=== PATIENT | female | born 1995 ===

== ENCOUNTER 2018-09-15 20:49 | Emergency (ER) | payer SELFPAY ==
[2018-09-15 20:55] VITALS: TEMP 99.1
[2018-09-15] MEDS ORDERED: Albuterol-Ipratrop 3 mg / 0.5 (3 ml) UD IH STA (21:09)
--- NOTE | 2018-09-15 21:16 | ED PDOC ---
Arrival/HPI - History of Present Illness Narrative History of Present Illness (Text): 09/15/18 21:13 23 year old female with a past medical history of asthma who comes in today complaining of shortness of breath for the past 2 days. The patient reports feeling winded at rest and with activity. Patient also admits to chills, non- productive cough, and congestion. Patient reports taking Nebulizer, Robutussin, and [place] sel[place] without any improvement in symptoms. Patient denies any chest pain, dizziness, abdominal pain, syncopal episodes, or any other complaints. Past medical history: asthma Medications: Ventolin Allergies: Squash Surgical history: Tonsillectomy Hospitalization history: denies Time/Duration: < week Symptom Onset: Gradual Symptom Course: Unchanged Quality: Other Severity Level: 4 Activities at Onset: Rest Context: Sitting, Walking <López Turpin - Last Filed: 09/15/18 22:53> <Jarad Mcneil - Last Filed: 09/16/18 03:50> - General Chief Complaint: Cough, Cold, Congestion Past Medical History - Provider Review Nursing Documentation Reviewed: Yes - Cardiac Hx Cardiac Disorders: No - Pulmonary Hx Respiratory Disorders: Yes Hx Asthma: Yes - Neurological Hx Neurological Disorder: No - HEENT Hx HEENT Disorder: Yes - Renal Hx Renal Disorder: No - Endocrine/Metabolic Hx Endocrine Disorders: No - Hematological/Oncological Hx Blood Disorders: No - Integumentary Hx Dermatological Disorder: No - Musculoskeletal/Rheumatological Hx Musculoskeletal Disorders: No - Gastrointestinal Hx Gastrointestinal Disorders: No - Genitourinary/Gynecological Hx Genitourinary Disorders: No - Psychiatric Hx Psychophysiologic Disorder: No Hx Substance Use: No - Surgical History Hx Tonsillectomy: Yes <López Turpin - Last Filed: 09/15/18 22:53> Family/Social History - Physician Review Nursing Documentation Reviewed: Yes Family/Social History: No Known Family HX Smoking Status: Current Some Days Smoker Hx Alcohol Use: Yes Frequency of alcohol use: Socially Hx Substance Use: No <López Turpin - Last Filed: 09/15/18 22:53> Allergies/Home Meds <López Turpin - Last Filed: 09/15/18 22:53> <Jarad Mcneil - Last Filed: 09/16/18 03:50> Allergies/Adverse Reactions: Allergies squash Allergy (Verified 09/15/18 20:51) SWELLING Review of Systems - Review of Systems Constitutional: Normal. absent: Fatigue, Weight Change, Fevers Eyes: Normal. absent: Vision Changes, Photophobia ENT: Normal. absent: Hearing Changes, Tinnitus, Epistaxis Respiratory: SOB, Cough, Wheezing Cardiovascular: Normal. absent: Chest Pain, Syncope Gastrointestinal: Normal. absent: Abdominal Pain, Vomiting, Appetite Changes, Food Intolerance Genitourinary Female: Normal. absent: Dysuria, Frequency Musculoskeletal: Normal. absent: Arthralgias, Back Pain Skin: Normal. absent: Rash, Pruritis Neurological: Normal. absent: Headache, Dizziness, Focal Weakness Endocrine: Normal. absent: Diaphoresis, Polyuria, Polydipsia Psychiatric: Normal. absent: Anxiety, Depression <López Turpin - Last Filed: 09/15/18 22:53> Physical Exam Vital Signs Reviewed: Yes Vital Signs Temp Pulse Resp BP Pulse Ox 09/15/18 20:51 99.1 F 111 H 17 130/84 94 L Temperature: Afebrile Blood Pressure: Normal Pulse: Tachycardic Respiratory Rate: Normal Appearance: Positive for: Well-Appearing, Non-Toxic, Comfortable Pain Distress: None Mental Status: Positive for: Alert and Oriented X 3. No: Confused, Agitated - Systems Exam Head: Present: Atraumatic, Normocephalic Pupils: Present: PERRL. No: Sluggish Extroacular Muscles: Present: EOMI. No: Gaze Palsy Conjunctiva: Present: Normal. No: Injected Mouth: Present: Moist Mucous Membranes. No: Dry, Drooling Neck: Present: Normal Range of Motion. No: Meningeal Signs, JVD, Lymphadenopathy Respiratory/Chest: Present: Wheezes, Rhonchi Cardiovascular: Present: Normal S1, S2, Tachycardic Abdomen: No: Tenderness, Distention, Normal Bowel Sounds, Guarding, Ostomy Tubes Upper Extremity: Present: Normal Inspection. No: Cyanosis, Edema Lower Extremity: Present: Normal Inspection. No: Edema, CALF TENDERNESS, Declan's Sign, Temperature Abnormalties Neurological: Present: Speech Normal. No: Normal Cerebellar Funct, Norm Deep Tendon Reflexes Skin: Present: Dry, Normal Color. No: Cold, Pale Psychiatric: Present: Alert, Oriented x 3, Normal Insight <López Turpin - Last Filed: 09/15/18 22:53> Vital Signs Temp Pulse Resp BP Pulse Ox 09/15/18 20:51 99.1 F 111 H 17 130/84 94 L <Jarad Mcneil - Last Filed: 09/16/18 03:50> Medical Decision Making ED Course and Treatment: 09/15/18 21:19 23 year old female with a past medical history of asthma who comes in today complaining of shortness of breath for the past 2 days Plan: CBC CMP CXR Rapid flu Duonebs IV Methylprednisone 09/15/18 22:43 Flu negative CXR negative for active disease Patient reports improvement in breathing. Re-examined and better. Stable for discharge. - RAD Interpretation Radiology Orders: 09/15/18 21:12 CHEST PORTABLE [RAD] Stat - Medication Orders Current Medication Orders: Methylprednisolone (Solu-Medrol) 125 mg IVP STAT STA Stop: 09/15/18 21:12 Discontinued Medications Albuterol/Ipratropium (Duoneb 3 Mg/0.5 Mg (3 Ml) Ud) 3 ml IH STAT STA Stop: 09/15/18 21:10 <López Turpin - Last Filed: 09/15/18 22:53> ED Course and Treatment: Impression: Pt seen and evaluated with medical officer. Aware and agree with plan. Pt, whose past medical history includes asthma, presented for shortness of breath, chills, non-productive cough, and congestion. Plan: -- Labs -- Chest X-ray -- Rapid influenza -- Duoneb -- Solu-medrol -- Reassess and disposition Progress Notes: - Lab Interpretations Lab Results: 09/15/18 21:30 Lab Results 09/15/18 21:30: WBC 10.5, RBC 4.81, Hgb 13.0, Hct 39.0, MCV 81.1, MCH 27.0, MCHC 33.3, RDW 15.3 H, Plt Count 213, MPV 11.6 H, Gran % 74.7 H, Lymph % (Auto) 16.4 L, [place] % (Auto) 4.5, Eos % (Auto) 4.3, Baso % (Auto) 0.1, Gran # 7.81 H, Lymph # (Auto) 1.7, [place] # (Auto) 0.5, Eos # (Auto) 0.5, Baso # (Auto) 0.01 - RAD Interpretation Radiology Orders: 09/15/18 21:12 CHEST PORTABLE [RAD] Stat - Medication Orders Current Medication Orders: Discontinued Medications Albuterol/Ipratropium (Duoneb 3 Mg/0.5 Mg (3 Ml) Ud) 3 ml IH STAT STA Stop: 09/15/18 21:10 Last Admin: 09/15/18 21:15 Dose: 3 ml Methylprednisolone (Solu-Medrol) 125 mg IVP STAT STA Stop: 09/15/18 21:12 Last Admin: 09/15/18 21:15 Dose: 125 mg IVP Administration Document 09/15/18 21:15 AD (Rec: 09/15/18 21:32 AD [id number]) Charges for Administration # of IVP Administrations 1 <Jarad Mcneil - Last Filed: 09/16/18 03:50> - PA / ACETYLENE CUTTER / Resident Statement MD/DO has reviewed & agrees with the documentation as recorded. MD/DO has examined the patient and agrees with the treatment plan. - Scribe Statement The provider has reviewed the documentation as recorded by the Sandor Birch Provider Scribe Attestation: All medical record entries made by the Ameliaibswathi were at my direction and personally dictated by me. I have reviewed the chart and agree that the record accurately reflects my personal performance of the history, physical exam, medical decision making, and the department course for this patient. I have also personally directed, reviewed, and agree with the discharge instructions and disposition. <Jarad Mcneil - Last Filed: 09/16/18 03:50> Disposition/Present on Arrival - Present on Arrival Any Indicators Present on Arrival: No History of DVT/PE: No History of Uncontrolled Diabetes: No Urinary Catheter: No History of Decub. Ulcer: No History Surgical Site Infection Following: None - Disposition Have Diagnosis and Disposition been Completed?: Yes Disposition Time: 22:42 Patient Plan: Discharge <López Turpin - Last Filed: 09/15/18 22:53> <Jarad Mcneil - Last Filed: 09/16/18 03:50> - Disposition Diagnosis: Upper respiratory infection, Asthma exacerbation, mild Disposition: HOME/ ROUTINE Condition: IMPROVED Additional Instructions: 1. F/u with PMD within 2 days of discharge. 2. Return to hospital for any new or worsening symptoms. Prescriptions: RX: predniSONE [predniSONE Tab] 20 mg PO TID #15 tab Azithromycin [Zithromax] 250 mg PO DAILY #4 tab Forms: [facility] (Kazakh), WORK NOTE
[2018-09-15 21:37] LABS: BASO # 0.01 K/mm3 (0.0-2.0); BASO % 0.1 % (0.0-3.0); EOS # 0.5 (0.0-0.7); EOS % 4.3 % (1.5-5.0); GRAN # 7.81 (1.4-6.5); GRAN % 74.7 % (50.0-68.0); LYMPH # 1.7 (1.2-3.4); LYMPH % 16.4 % (22.0-35.0); MEAN CELL VOLUME 81.1 fl (80.0-105.0); MEAN CORPUSCULAR HGB CONC 33.3 g/dl (31.0-37.0); MEAN PLATELET VOLUME 11.6 fl (7.0-11.0); MONO # 0.5 (0.1-0.6); MONO % 4.5 % (1.0-6.0); RBC 4.81 10^6/uL (3.5-6.1); RED CELL DISTRIBUTION WIDTH 15.3 % (11.5-14.5); WHITE BLOOD COUNT 10.5 10^3/uL (4.5-11.0)
[2018-09-15 21:46] LABS: ALB/GLOB RATIO 1.2 (1.1-1.8); ALBUMIN 4.4 g/dL (3.0-4.8); ALT/SGPT 33 U/L (7-56); AST/SGOT 31 U/L (14-36); BLOOD UREA NITROGEN 12 mg/dL (7-21); CALCIUM 9.2 mg/dL (8.4-10.5); GFR NON-AFRICAN AMERICAN > 60
[2018-09-15 22:57] VITALS: BP 127/72; PULSE 97; RESP 18; O2SAT 95
--- NOTE | 2018-09-16 11:09 | RAD ---
Date of service: 09/15/2018 HISTORY: sob COMPARISON: No prior. FINDINGS: LUNGS: The lungs are well inflated and clear. PLEURA: No pleural effusions or pneumothorax. CARDIOVASCULAR: The heart is normal in size. No aortic atherosclerotic calcification present. OSSEOUS STRUCTURES: Within normal limits for the patient's age. VISUALIZED UPPER ABDOMEN: Normal. OTHER FINDINGS: None. IMPRESSION: No active pulmonary disease.
== END 2018-09-15 22:55 | disposition home or self-care (01) ==
LOC: ED 20:49
DX: J45.901 Unspecified asthma with (acute) exacerbation (principal); J06.9 Acute upper respiratory infection, unspecified; F17.210 Nicotine dependence, cigarettes, uncomplicated
CPT/HCPCS: 71045; 80053; 85025; 87804; 96374; 99283; J2930

== ENCOUNTER 2018-12-07 17:57 | Emergency (ER) | payer SELFPAY ==
[2018-12-07 18:55] VITALS: RESP 18
[2018-12-07 19:15] LABS: URINE BILIRUBIN NEGATIVE (NEGATIVE); URINE BLOOD NEGATIVE (NEGATIVE); URINE GLUCOSE (UA) NEGATIVE (NEGATIVE); URINE LEUKOCYTE ESTERASE NEGATIVE Leu/uL (NEGATIVE); URINE PROTEIN NEGATIVE mg/dL (<30 mg/dL); URINE UROBILINOGEN 0.2 E.U./dL (<1 E.U./dL)
[2018-12-07 19:20] LABS: URINE COLOR YELLOW (YELLOW)
[2018-12-07 19:21] LABS: URINE APPEARANCE CLEAR (CLEAR)
--- NOTE | 2018-12-07 19:27 | ED PDOC ---
Arrival/HPI - General Chief Complaint: Chest Pain Time Seen by Provider: 12/07/18 18:20 Historian: Patient - History of Present Illness Narrative History of Present Illness (Text): 12/07/18 18:55 A 23 year old female presents to the emergency department complaining of left upper chest pain radiating to left mid back since earlier today. Patient reports pain started at work earlier today due to heavy lifting. Patient states symptoms slightly resolved upon resting but state she is still in mild discomfort at this time. Patient states she has a past family history of heart disease, diabetes, and cancer. Patient denies any fever, URI, palpitations, shortness of breath, headache, dizziness, diaphoresis, trauma, injury, or any other complaints. No PMD Time/Duration: Other Symptom Onset: Gradual Symptom Course: Unchanged Activities at Onset: Light Context: Home Past Medical History - Provider Review Nursing Documentation Reviewed: Yes - Reproductive Currently : No - Cardiac Hx Cardiac Disorders: No - Pulmonary Hx Respiratory Disorders: Yes Hx Asthma: Yes - Neurological Hx Neurological Disorder: No - HEENT Hx HEENT Disorder: Yes - Renal Hx Renal Disorder: No - Endocrine/Metabolic Hx Endocrine Disorders: No - Hematological/Oncological Hx Blood Disorders: No - Integumentary Hx Dermatological Disorder: No - Musculoskeletal/Rheumatological Hx Musculoskeletal Disorders: No - Gastrointestinal Hx Gastrointestinal Disorders: No - Genitourinary/Gynecological Hx Genitourinary Disorders: No - Psychiatric Hx Psychophysiologic Disorder: No Hx Substance Use: No - Surgical History Hx Tonsillectomy: Yes Family/Social History - Physician Review Nursing Documentation Reviewed: Yes Family/Social History: No Known Family HX Smoking Status: Current Some Days Smoker Hx Alcohol Use: Yes Frequency of alcohol use: Socially Hx Substance Use: No Allergies/Home Meds Allergies/Adverse Reactions: Allergies squash Allergy (Verified 12/07/18 18:08) SWELLING Home Medications: Home Meds Medication Instructions Recorded Confirmed Albuterol HFA [Ventolin HFA 90 2 puff NEB Q6 PRN 12/07/18 12/07/18 mcg/actuation (8 g)] Review of Systems - Physician Review All systems were reviewed & negative as marked: Yes - Review of Systems Constitutional: absent: Fevers Respiratory: absent: SOB, Other (URI) Cardiovascular: Chest Pain. absent: Palpitations Musculoskeletal: Back Pain Neurological: absent: Headache, Dizziness Endocrine: absent: Diaphoresis Physical Exam Vital Signs Reviewed: Yes Vital Signs Temp Pulse Resp BP Pulse Ox 12/07/18 17:58 97.9 F 75 18 125/71 98 Temperature: Afebrile Blood Pressure: Normal Pulse: Regular Respiratory Rate: Normal Appearance: Positive for: Well-Appearing Mental Status: Positive for: Alert and Oriented X 3 - Systems Exam Head: Present: Atraumatic, Normocephalic Pupils: Present: PERRL Extroacular Muscles: Present: EOMI Conjunctiva: Present: Normal Neck: Present: Normal Range of Motion Respiratory/Chest: Present: Clear to Auscultation, Good Air Exchange. No: Respiratory Distress, Accessory Muscle Use Cardiovascular: Present: Regular Rate and Rhythm, Normal S1, S2. No: Murmurs Abdomen: No: Tenderness, Distention, Peritoneal Signs Back: Present: Normal Inspection Upper Extremity: Present: Normal Inspection. No: Cyanosis, Edema Lower Extremity: Present: Normal Inspection. No: Edema Neurological: Present: GCS=15, CN II-XII Intact, Speech Normal Skin: Present: Warm, Dry, Normal Color. No: Rashes Psychiatric: Present: Alert, Oriented x 3, Normal Insight, Normal Concentration Medical Decision Making ED Course and Treatment: 12/07/18 18:57 Impression: 23 year old presenting to the emergency room complaining of left side chest pain. Plan: -- EKG -- Labs -- CBC -- COAGs -- Chest X-ray -- Reassess and disposition Prior Visits: Notes and results from previous visits were reviewed. Progress Notes: Wells' Criteria for Pulmonary Embolism from [email or web address] on 12/07/2018 RESULT SUMMARY: 0.0 points Low risk group: 1.3% chance of PE in an ED population. Another study assigned scores = 4 as PE Unlikely and had a 3% incidence of PE. INPUTS: Clinical signs and symptoms of DVT > 0 = No PE is #1 diagnosis OR equally likely > 0 = No Heart rate > 100 > 0 = No Immobilization at least 3 days OR surgery in the previous 4 weeks > 0 = No Previous, objectively diagnosed PE or DVT > 0 = No Hemoptysis > 0 = No Malignancy w/ treatment within 6 months or palliative > 0 = No 12/07/18 19:22 EKG: Ordered, reviewed, and independently interpreted the EKG. Rate : 83 BPM Rhythm : NSR Interpretation : No ST-segment elevations or depressions, no T-wave inversions, normal intervals. CXR : NAD, as read by JAM Labs reviewed : trop (-), rest of the labs wnl. On reevaluation, patient reports improvement of symptoms, denies any back pain or SOB. On exam, patient remains awake alert and oriented 3 in no acute distr ess. Results d/w the patient. Considering patient's onset of symptoms, and that she is a smoker with significant family history, will repeat a 2nd troponin after 3 hours. 2nd trop ordered. 12/07/18 23:58 2nd trop (-). Repeat VS BP 110/58 P 82 O2sat 95%RA R 18. On second reevaluation, patient denies any CP, SOB or back pain. On exam, patient laying in bed comfortably in no acute distress. Results d/w the patient. Based on history, exam and diagnostic results plan will be for outpatient follow up. Advised to follow up with the clinic in 1-2 days without fail. Return to the emergency room at any time for any new or worsening symptoms. Patient states she fully agrees with and understands discharge instructions. States that she agrees with the plan and disposition. Verbalized and repeated discharge instructions and plan. I have given the patient opportunity to ask any additional questions. 12/08/18 00:03 - Lab Interpretations Lab Results: Urine Color Yellow (YELLOW) 12/07/18 19:00 Urine Appearance Clear (CLEAR) 12/07/18 19:00 Urine pH 6.0 (4.7-8.0) 12/07/18 19:00 Ur Specific [place] >= 1.030 (1.005-1.035) 12/07/18 19:00 Urine Protein Negative mg/dL (<30 mg/dL) 12/07/18 19:00 Urine Glucose (UA) Negative mg/dL (NEGATIVE) 12/07/18 19:00 Urine Ketones Negative mg/dL (NEGATIVE) 12/07/18 19:00 Urine Blood Negative (NEGATIVE) 12/07/18 19:00 Urine Nitrate Negative (NEGATIVE) 12/07/18 19:00 Urine Bilirubin Negative (NEGATIVE) 12/07/18 19:00 Urine Urobilinogen 0.2 E.U./dL (<1 E.U./dL) 12/07/18 19:00 Ur Leukocyte Esterase Negative [place]/uL (NEGATIVE) 12/07/18 19:00 - RAD Interpretation Radiology Orders: 12/07/18 19:01 CHEST PORTABLE [RAD] Stat - PA / CLIENT REPRESENTATIVE / Resident Statement MD/DO has reviewed & agrees with the documentation as recorded. - Scribe Statement The provider has reviewed the documentation as recorded by the Scribswathi Perez All medical record entries made by the Scribe were at my direction and personally dictated by me. I have reviewed the chart and agree that the record accurately reflects my personal performance of the history, physical exam, medical decision making, and the department course for this patient. I have also personally directed, reviewed, and agree with the discharge instructions and disposition. Disposition/Present on Arrival - Present on Arrival Any Indicators Present on Arrival: No History of DVT/PE: No History of Uncontrolled Diabetes: No Urinary Catheter: No History of Decub. Ulcer: No History Surgical Site Infection Following: None - Disposition Have Diagnosis and Disposition been Completed?: Yes Diagnosis: Chest pain Disposition: HOME/ ROUTINE Disposition Time: 00:00 Patient Plan: Discharge Condition: STABLE Discharge Instructions (ExitCare): Chest Pain (ED) Additional Instructions: Thank you for letting us take care of you today. You were treated for chest pain. The emergency medical care you received today was directed at your acute s ymptoms. Return to the Emergency Department if your symptoms worsen, do not improve, or if you have any other problems. Please follow up with the clinic in 2 days for re-evaluation and follow up. Annie mcdowell any paperwork you were given at discharge with you along with any medications you are taking to your follow up visit. Our treatment cannot replace ongoing medical care by a primary care provider (PCP) outside of the emergency department. Thank you for allowing the [facility] team to be part of your care today. If you had an X-Ray : A Radiologist will review the ED reading if any change in treatment is needed we will contact you. Referrals: [facility] [place]] - Follow up with primary Forms: [employer] (Uzbek), WORK NOTE
[2018-12-07 19:44] LABS: EOS # 0.3 (0.0-0.7); EOS % 2.8 % (1.5-5.0); HEMOGLOBIN 12.9 g/dL (12.0-16.0); LYMPH % 26.4 % (22.0-35.0); MEAN CELL VOLUME 83.1 fl (80.0-105.0); MEAN CORPUSCULAR HEMOGLOBIN 26.9 pg (25.0-35.0); MEAN CORPUSCULAR HGB CONC 32.4 g/dl (31.0-37.0); MEAN PLATELET VOLUME 12.4 fl (7.0-11.0); MONO # 0.3 (0.1-0.6); MONO % 2.8 % (1.0-6.0); RBC 4.79 10^6/uL (3.5-6.1); RED CELL DISTRIBUTION WIDTH 14.5 % (11.5-14.5); WHITE BLOOD COUNT 11.4 10^3/uL (4.5-11.0)
[2018-12-07 19:48] LABS: INR 1.16; PARTIAL THROMBOPLASTIN TIME 35.9 Seconds (26.9-38.3); PROTHROMBIN TIME 12.9 SECONDS (9.4-12.5)
[2018-12-07 19:52] LABS: ALB/GLOB RATIO 1.2 (1.1-1.8); ALBUMIN 4.3 g/dL (3.0-4.8); ALT/SGPT 34 U/L (7-56); AST/SGOT 40 U/L (14-36); BLOOD UREA NITROGEN 17 mg/dL (7-21); CALCIUM 9.3 mg/dL (8.4-10.5); GFR NON-AFRICAN AMERICAN > 60
[2018-12-07 20:03] LABS: TROPONIN I < 0.01 ng/mL
[2018-12-08 00:35] VITALS: BP 116/68; PULSE 69; TEMP 98.2; O2SAT 98
--- NOTE | 2018-12-08 09:57 | RAD ---
Date of service: 12/07/2018 HISTORY: CP COMPARISON: 09/15/2018 FINDINGS: LUNGS: No active pulmonary disease. PLEURA: No significant pleural effusion identified, no pneumothorax apparent. CARDIOVASCULAR: No aortic atherosclerotic calcification present. Cardiomegaly.. No pulmonary vascular congestion. OSSEOUS STRUCTURES: No significant abnormalities. VISUALIZED UPPER ABDOMEN: Normal. OTHER FINDINGS: None. IMPRESSION: No active disease.
--- NOTE | 2018-12-08 21:28 | CARD ---
APPROVED REPORT Date of service: 12/07/2018 EKG Measurement Heart [id number] <Conclusion> Sinus rhythm with premature atrial complexes Otherwise normal ECG
== END 2018-12-08 00:35 | disposition home or self-care (01) ==
LOC: ED 17:57
DX: R07.9 Chest pain, unspecified (principal); Z83.3 Family history of diabetes mellitus